=== PATIENT | male | born 1945 | race Caucasian/White ===

== ENCOUNTER → 2016-06-11 | Outpatient (CLI) | payer OTHER, MEDICARE ==
[~2016-06-11] MED LIST: ATEN25TA PO; CALC500C70 PO; CHOL100027 PO; CLC100X PO; CYAN100T6 PO; ENOX30IN SQ; LEVO75TA36 PO; OXYC-292 PO; OXYC1TAB3 PO; PYRI100T2 PO; SENN-61 PO; TYLOTC500 PO; [UNRECOGNIZED DRUG - CODE]
== END | disposition home or self-care (01) ==
LOC: C.RDSM 11:15
PROVIDERS: ATTEND Physical Medicine & Rehabilitation Sports Medicine
DX: Z96.652 Presence of left artificial knee joint (principal)

== ENCOUNTER 2020-11-28 09:32 | Observation (INO) ==
--- NOTE | 2020-11-27 12:06 | Anesthesiology Consultation ---
Date of Service November 27, 2020 Assessment & Plan (1) Encounter for pre-operative examination: Chart Review Chart Review: Acceptable Risk for Surgery and Patient NOT seen in Pre Admission Testing - Check [facility] AM DOS Per nursing assessment 11/27/2020, patient denies any recent travel. No known Covid infection in the past 90 days. Patient is vaccinated for Covid. No known Covid positive contacts or Covid related symptoms. Preop Covid test 11/24/20= negative. Pt requiring admission post operatively. Plan for recheck with COVID [facility] AM DOS due to possibility that patient may have a roommate. OR aware. [facility] order placed. Last seen by cardiology 06/20/2020 = seen for routine cardiac evaluation and review of medications. History of hypertensioncurrently being treated. Pulmonary hypertensionresolving. SOB and palpitations. Normal coronary arteries by cath March 2007. History of short episode of a flutter in 2011. Continue current medications. Continue checking BP on a regular [id number] Holter monitor to evaluate palpitations. Sleep studies ordered by PCP to further evaluate KIMBERLY. Follow-up in 12 months. History Surgery Operation Date: 11/28/20 12:00 Proposed Procedures p Right Achilles Debridement - Brandon Roy MD Height/Weight Height: 6 ft 1 in Weight: 105.687 kg Allergies Allergy/AdvReac Type Severity Reaction Status Date / Time methysergide Allergy Intermediate supervisor metal hanging, felt Verified 11/27/20 11:06 out of my body amlodipine Allergy Mild rash Verified 11/27/20 11:06 nabumetone Allergy Mild rash Verified 11/27/20 11:06 morphine AdvReac Intermediate LOW BP Verified 11/27/20 11:11 WHEN HAD MORPHINE SYSTEM ADMINISTRATION MANAGER Medications Home Medications Medication Instructions Recorded Confirmed Last Taken allopurinol 100 mg tablet 200 mg PO QAM 11/27/20 11/27/20 Unknown aspirin 325 mg tablet,delayed 325 mg PO QAM 11/27/20 11/27/20 Unknown release (Ecotrin) carvedilol 25 mg tablet 25 mg PO BID 11/27/20 11/27/20 Unknown cephalexin 500 mg capsule 500 mg PO TID 11/27/20 11/27/20 Unknown cholecalciferol (vitamin D3) 50 50 mcg PO QAM 11/27/20 11/27/20 Unknown mcg (2,000 unit) tablet (Vitamin D3) colchicine 0.6 mg capsule 0.6 mg PO BID 11/27/20 11/27/20 Unknown fluticasone fur. 100 mcg-umeclid 1 inh INHALATION DAILY PRN 11/27/20 11/27/20 Unknown 62.5 mcg-vilant 25 mcg inhalat.powder (Trelegy Ellipta) levothyroxine 75 mcg tablet 75 mcg PO QAM 11/27/20 11/27/20 Unknown Past Medical History Medical History (Updated 11/27/20 @ 15:34 by Yaz Wren PA-C) Acid reflux Diabetes mellitus, type 2 DIET CONTROLLED Gout History of kidney stones Hx of atrial flutter DX 2011 (NO CURRENT PROBLEM) Per cardio records- "History of short episode of a flutter in 2011" Hx of basal cell carcinoma REMOVED FROM EAR Hx of gastritis Hx of migraines Hypertension Hypothyroidism Lumbar spinal stenosis Neuropathy PVC (premature ventricular contraction) FOLLOWS WITH DR. SANON Sleep apnea BIPAP Small airways disease Past Family History Family History Grandmother (Maternal) Family history of diabetes mellitus Other No family history of adverse response to anesthesia Past Surgical History Surgical History H/O Achilles tendon repair RT History of cardiac cath 2006 (NO STENTS) History of colonoscopy History of esophagogastroduodenoscopy (EGD) History of lithotripsy History of tooth extraction History of total knee replacement LEFT Maxillary cyst REMOVED Social History Smoking Status: Never smoker Hx Alcohol Use: Yes Alcohol type: hard liquor alcohol intake frequency: 0-2 drinks per day substance use type: does not use Lab Results Anesthesia Preop Results Results Anesthesia Widget: WBC 7.12 K/uL (4.8-10.8) 11/24/20 Hgb 16.0 g/dL (14.0-18.0) 11/24/20 Hct 47.0 % (42-52) 11/24/20 Plt 218 K/uL (130-400) 11/24/20 Na 136 mmol/L (136-145) 11/24/20 K 4.2 mmol/L (3.5-5.1) 11/24/20 Cl 105 mmol/L (98-107) 11/24/20 CO2 30 mmol/L (21-32) 11/24/20 BUN 18 mg/dl (7-18) 11/24/20 Creat 0.90 mg/dl (0.6-1.4) 11/24/20 Glucose Level 132 mg/dl (70-99) H 11/24/20 Testing Electrocardiogram Date: 11/24/20 Findings: + SB @ (59bpm) RSR' and QR pattern in V1 suggests right ventricular conduction delay. Echocardiogram Date: 06/19/20 EF: 55% LV Function: normal Valvular Disease: + MR (Mild) Left atrium is mildly dilated. Mild TR. Stress Test Date: 04/22/19 Type: exercise (Echo) Resting EF: 55% Resting LV Function: normal Resting RWMA: + none Stress EKG negative for myocardial ischemia at 88%. Stress echo negative for new wall motion abnormality at 88% of MPHR. 10.1 METS achieved Stress echo normal improvement in the LVEF with stress. Frequent PVCs noted on stress. Other Testing Holter monitor 06/29/2020 to 06/30/2020 = sinus rhythm with episodes of sinus bradycardia and sinus tachycardia. Infrequent premature ventricular beats. Episodes of nonsustained ventricular tachycardia. No change. Consider an event monitor if continues to have symptoms.
[~2020-11-28 09:32] MED LIST changes: -ATEN25TA PO; -CALC500C70 PO; -CHOL100027 PO; -CLC100X PO; -CYAN100T6 PO; -ENOX30IN SQ; -LEVO75TA36 PO; +LR 15ML/HR IV SCH; -OXYC-292 PO; -OXYC1TAB3 PO; -PYRI100T2 PO; -SENN-61 PO; -TYLOTC500 PO; -[UNRECOGNIZED DRUG - CODE]
--- NOTE | 2020-11-28 12:22 | History & Physical Bridge Note ---
Date of Service November 28, 2020 History & Physical Bridge Note I have examined the patient, reviewed the History & Physical and in the interval since the performance of the History & Physical I have noted the following changes of clinical significance: no changes noted
[2020-11-28] MEDS ORDERED: NEOSTIGMINE METHYLSULFATE 1 MG/ML 10ML VIAL ONE (15:49)
[2020-11-28] MEDS ORDERED: ROCURONIUM BROMIDE 10 MG/ML 5 ML VIAL IV ONE (15:49)
[2020-11-28] MEDS ORDERED: fentaNYL citrate 100 MCG/2 ML VIAL ONE (15:49)
[2020-11-28] MEDS ORDERED: MIDAZOLAM HCL 1 MG/ML 2ML VIAL ONE (15:49)
[2020-11-28] MEDS ORDERED: GLYCOPYRROLATE 0.2 MG/ML VIAL ONE (15:49)
[2020-11-28] MEDS ORDERED: LIDOCAINE 2% 2 ML VIAL/AMP(20MG/ML) INFIL ONE (15:49)
[2020-11-28] MEDS ORDERED: BUPIVACAINE 0.5 % 5 MG/1 ML MPF 30ML VIAL ONE (15:57)
[2020-11-28] MEDS ORDERED: LIDOCAINE 1% LOCAL 20 ML VIAL ONE (16:11)
--- NOTE | 2020-11-28 17:04 | Operative Report ---
Post Operative Report Pre & Post Diagnosis Operation Date: 11/28/20 12:00 Pre-Op Diagnosis: Right Achilles Lesion Post-Op Diagnosis: Right Achilles Lesion I identified the patient and participated in the time-out.: Yes Procedure Operation Date: 11/28/20 12:00 Actual Procedures p Right Achilles Debridement(Right) - Brandon Roy MD Surgeon Brandon Roy MD Line Maintenance Supervisor Demond Gaytan no resident or fellow available. Estimated Blood Loss 0 Findings See Below Chalky material and nodular formation consistent with gout. No purulence. 2 old suture knots, from permanent FiberWire type sutures. Specimens The lesion was sent for specimen for gross pathology and micro. I also sent a swab culture for Gram stain aerobic and anaerobic BIC. I also asked for crystal analysis. Anesthesia Type General Regional Complications none Disposition Accompanied Patient To Recovery: No Disposition: Recovery Room Indications Raphael is status post a right Achilles repair. About a week ago he had a very painful lump pop up on the Achilles. This was treated as potential infection and also gout. Things have improved with less overall pain and swelling but the nodule persists. We talked about evaluating this with surgery and removing it he agreed to proceed. Surgery may be as simple as excising suture knots or could be more extensive if there was infection. This more extensive surgery could involve opening up the whole incision and removing sutures. Description of Procedure Informed consent obtained. Patient identified. He identified the operative site as the right Achilles. I marked with my initials. A preoperative surgical timeout was performed and a preop dose of IV antibiotics was given. He was taken to the operating room. He was anesthetized and then turned prone on the OR table. Chest rolls were utilized. The arms were Gerardo and comfortable abduction and external rotation with the elbows below the shoulders. A tourniquet was applied to the right thigh. Padding of the knees and ankles was performed as well as all bony prominences. The torso was secured to the table. The right leg was then prepped and draped in the usual sterile fashion. DVT prophylaxis with foot pumps. Postoperatively early mobility. Limb exsanguinated with the Esmarch. Tourniquet inflated 250 mmHg. Tourniquet let down to the conclusion of the procedure. The nodule was about a centimeter to 12 mm in diameter located centrally over the midportion of the prior Achilles incision. It was soft but not fluctuant. There is no drainage present. No induration. I incised for a distance of about 2 cm and then dissected subcutaneously around this lesion. Chalky white substance was encountered and nodular form. This went down into the substance of the tendon. It was dissected out from the surrounding tissues and resected. This was sent for a specimen as well as crystal analysis and appeared consistent with gout. There w as no purulence. Deep to this in the area where the gout penetrated into the tendon there were 2 old FiberWire suture knots which were retrieved and amputated. I then used a rongeur to debride the gout from the tendon area. This left a longitudinal defect about 3 mm wide and a centimeter long. 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 This was copiously irrigated with sterile saline. I then closed the tendon side to side with a 0 Vicryl. Not buried. I then closed the skin with 3-0 nylon interrupted horizontal mattress sutures. Xeroform 4 x 4's ABD Caden wrap applied. The patient's is going to provide the boot which and would be applied in recovery. He was awakened from anesthesia returned to the supine position extubated and taken to recovery without difficulty. Specimens were as mentioned above. Counts were correct. Blood loss was minimal and at the conclusion of the operation spoke to his informed my findings and gave postop instructions. We will check on the pathology tomorrow. We will continue IV antibiotics in case there is not any evidence of infection. We will follow-up on cultures tomorrow. DVT prophylaxis with early mobility. He may weight-bear as tolerated in his boot for comfort. I attest to the content of the Intraoperative Record and any orders documented therein. Any exceptions are noted below.
--- NOTE | 2020-11-28 17:10 | Operative Report ---
Post Operative Report Pre & Post Diagnosis Operation Date: 11/28/20 12:00 Pre-Op Diagnosis: Right Achilles Lesion Post-Op Diagnosis: Right Achilles Lesion I identified the patient and participated in the time-out.: Yes Procedure Operation Date: 11/28/20 12:00 Actual Procedures p Right Achilles Debridement(Right) - Brandon Roy MD Surgeon CAMILLE Roy MD Hand Coper Demond Gaytan no resident or fellow available. Estimated Blood Loss 0 Findings Consistent with Post-Op Diagnosis see operative report Specimens see operative report Drains none Complications none Disposition Accompanied Patient To Recovery: Yes Indications This 75-year-old male presented to the office with complaints of a nodule over his right Achilles that was painful. He tried conservative care measures without improvement. Patient elected to proceed with surgical intervention after being educated about potential risks and outcomes. Preoperative imaging was obtained. Description of Procedure Patient was taken to the operating room where he was given general anesthesia. He was prepped and draped in the usual sterile fashion. Please see Dr. Roy's operative report for specifics of the procedure. I was present for the entire case from initial patient positioning through final wound closure. Assistance was provided in tissue retraction, hemostasis, final wound closure, and final dressing. Patient was taken to the recovery room in satisfactory condition. I attest to the content of the Intraoperative Record and any orders documented therein. Any exceptions are noted below.
[2020-11-28] MEDS ORDERED: ONDANSETRON INJ 2 MG/ML 2 ML VIAL ONE (17:17)
[2020-11-28] MEDS ORDERED: DEXAMETHASONE SOD INJ 4 MG/ML VIAL ONE (17:17)
--- NOTE | 2020-11-28 17:27 | Anesthesiology Progress Note ---
Date of Service November 28, 2020 Anesthesia Post Procedure Vital Signs Vital Signs: Temp Pulse Pulse Resp BP BP Pulse Ox 11/28/20 17:15 67 12 159/86 H 100 11/28/20 17:06 37.0 C 74 12 152/84 H 99 11/28/20 10:18 36.9 C 62 20 142/84 H 97 Pain Intensity Right Ankle: Pain Intensity: 1 Transfer of Care Handoff Completed per policy Notes Mental Status: alert / awake / arousable Patient Amnestic to Procedure: Yes Nausea / Vomiting: adequately controlled Pain: adequately controlled Airway Patency, RR, SpO2: stable & adequate BP & HR: stable & adequate Hydration State: stable & adequate Anesthetic Complications: no major complications apparent
[2020-11-28] MEDS ORDERED: fentaNYL citrate 100 MCG/2 ML VIAL IV PRN (17:32)
[2020-11-28] MEDS ORDERED: ATROPINE SULFATE 0.1 MG/ML 10ML SYR IV PRN (17:32)
[2020-11-28] MEDS ORDERED: ePHEDrine sulfate 50 MG/ML AMP IV PRN (17:32)
[2020-11-28] MEDS ORDERED: ONDANSETRON INJ 2 MG/ML 2 ML VIAL IV PRN ×2 (17:32→18:19)
[2020-11-28] MEDS ORDERED: diphenhydrAMINE 50 MG/ML VIAL IV PRN (18:19)
[2020-11-28] MEDS ORDERED: bisacodyL 10 MG SUPP PR PRN (18:19)
[2020-11-28] MEDS ORDERED: ALUMINUM/MAGNESIUM SUSP 30 ML UDC PO PRN (18:19)
[2020-11-28] MEDS ORDERED: MAGNESIUM HYDROXIDE SUSP 30 ML UDC PO PRN (18:19)
[2020-11-28] MEDS ORDERED: TAMSULOSIN HCL 0.4 MG CAP PO PRN (18:19)
[2020-11-28] MEDS ORDERED: oxyCODONE HCL IR 5 MG TAB (IMMEDIATE RELEASE) PO PRN (18:19)
[2020-11-28] MEDS ORDERED: METOCLOPRAMIDE HCL INJ 5 MG/ML 2 ML VIAL IV PRN (18:19)
[2020-11-28] MEDS ORDERED: NALOXONE HCL 0.4 MG/1 ML VIAL/CARP IV PRN (18:19)
[2020-11-28] MEDS ORDERED: SODIUM CHLORIDE 0.9% 1000ML 1,000 ML IV SCH (18:19)
[2020-11-28] MEDS ORDERED: UMECLIDINIUM/VILANTEROL 62.5/25MCG 7 PUFFS/INHALER INH PRN (19:19)
[2020-11-28] MEDS ORDERED: FLUTICASONE FUROATE 100MCG 14 PUFFS/INHALER INH PRN (19:21)
[2020-11-28] MEDS: carvediloL 25 MG TAB PO SCH (20:35)
[2020-11-28] MEDS: DOCUSATE SODIUM 100 MG CAP PO SCH (20:36)
[2020-11-28] MEDS: COLCHICINE 0.6 MG TAB PO SCH (20:36)
[2020-11-28] MEDS: ACETAMINOPHEN 500 MG TAB PO SCH (20:59)
[2020-11-28] MEDS ORDERED: SENNA 8.6 MG TAB PO SCH (21:00)
[2020-11-28] MEDS: ceFAZolin 2000MG 2,000 MG/15 ML SYR IV SCH (22:57)
[2020-11-29] MEDS: ACETAMINOPHEN 500 MG TAB PO SCH (04:54)
[2020-11-29] MEDS ORDERED: LEVOTHYROXINE SODIUM 75 MCG TABLET PO SCH (06:30)
[2020-11-29 07:24] LABS: Appearance Urine Clear (Clear); Bilirubin Urine Negative (Negative); Blood Urine Negative (Negative); Color Urine Yellow; Glucose Urine UA Negative (Negative); Ketones Urine Negative (Negative); Leukocyte Esterase Urine Negative (Negative); Nitrite Urine Negative (Negative); Protein Urine Negative (Negative); Specific Gravity Urine 1.011 (1.000-1.030); Urobilinogen Urine Negative (Negative); pH Urine 6.5 (4.5-7.5)
[2020-11-29] MEDS ORDERED: ACETAMINOPHEN 325 MG TAB PO PRN (07:25)
[2020-11-29] MEDS ORDERED: ASCORBIC ACID 500 MG TAB PO SCH (08:00)
--- NOTE | 2020-11-29 08:23 | Orthopedic Progress Note ---
Date of Service November 29, 2020 Assessment & Plan (1) Achilles tendon mass: Plan: UA is ordered and is negative. Medications are adjusted. We will continue on the colchicine to treat gout. Add Celebrex. We will continue on Ancef until we get some preliminary results back. Elevate ice. Continue admission at this point pending laboratory results. We will check pathology and crystal analysis as well. He may weight-bear as tolerated. Check uric acid level. Admission and Anticipated Discharge Date Admission Date: November 28, 2020 Subjective We discussed findings of the surgical procedure which I think is primarily related to foreign body reaction and gout. Some discomfort. The boot bothers him. The boot can be worn as necessary. Reports some dysuria. A UA is ordered. Physical Exam Physical Exam: Distal neurovascular function intact. Claw toe deformity chronic. He can flex and extend the ankle with normal strength. Dorsalis pedis is 1+. Sensation intact there is no significant swelling. The dressing is dry. Results & Data ([facility] [place]) Vital Signs (Past 12 Hours) Vital Signs Temp Pulse Resp BP Pulse Ox 11/29/20 07:25 36.6 C 63 16 126/76 94 11/29/20 02:59 36.4 C L 64 14 126/70 96 11/28/20 22:45 36.7 C 70 18 125/68 92 11/28/20 21:20 36.7 C 72 20 127/72 95
[2020-11-29] MEDS: ceFAZolin 2000MG 2,000 MG/15 ML SYR IV SCH (08:33)
[2020-11-29] MEDS: DOCUSATE SODIUM 100 MG CAP PO SCH ×2 (08:35→08:43)
[2020-11-29] MEDS: COLCHICINE 0.6 MG TAB PO SCH ×2 (08:35→08:38)
[2020-11-29] MEDS: FERROUS GLUCONATE 324 MG TAB PO SCH ×2 (08:36→08:39)
[2020-11-29] MEDS: carvediloL 25 MG TAB PO SCH (08:36)
[2020-11-29] MEDS ORDERED: CELECOXIB 100 MG CAP PO SCH (09:00)
[2020-11-29] MEDS ORDERED: MULTIVITAMIN TAB PO SCH (09:00)
[2020-11-29] MEDS ORDERED: ASPIRIN 325 MG ECTAB PO SCH (09:00)
[2020-11-29] MEDS ORDERED: allopurinoL 100 MG TAB PO SCH (09:00)
[2020-11-29] MEDS ORDERED: ceFAZolin 2000MG 2,000 MG/15 ML SYR IV SCH (16:00)
--- NOTE | 2020-11-30 16:19 | Discharge Summary (DS) ---
DATE OF ADMISSION: 11/28/2020. DATE OF DISCHARGE: 11/29/2020. ADMITTING DIAGNOSIS: Right Achilles lesion. DISCHARGE DIAGNOSIS: Right Achilles lesion. PROCEDURE: Open debridement of right Achilles lesion. BRIEF HISTORY: The patient is a 75 years old and several years status post repair of his Achilles te ndon. He has developed an acute painful lesion. There is concern of infection or that this could be gout. He has been treated with anti-inflammatories, colchicine and antibiotics with some improvemen t. He wishes to have it removed. He was admitted to the hospital after a successful operation to remove the lesion on the right Achill es tendon, which was about a centimeter in size. Several stitches were removed and a toothpaste-like material was noted consistent with gout or calcium. Cultures were negative. There was no evidence of gout. The pathology was indicative of a dystrophic calcification with calcium hydroxyapatite. He was kept on a postoperative course of IV antibiotics. Given the preliminary results and absence of gross infection, he was discharged home. He will continue his Keflex until we get more culture data. Stop the colchicine. Take Celebrex. Weightbear as tolerated using fracture boot for comfort. He was educated about wound care and will follow up with me in my office in 2 weeks. He can do a dressi ng change and bathe. If there are any problems with pain, swelling, fevers or any other problems or questions, please return to the ER or call my office. Job ID: [id number]
== END 2020-11-29 15:43 | disposition home or self-care (01) ==
LOC: 3E 09:32 → ASU 09:32

== ENCOUNTER 2023-12-02 05:15 | Observation (INO) ==
--- NOTE | 2023-11-17 13:03 | PAT Medication Instructions ---
Medication Instructions Date of Service November 17, 2023 Home Medications allopurinol 100 mg tablet 200 mg PO QAM aspirin 325 mg tablet,delayed release (Ecotrin) 325 mg PO QAM cholecalciferol (vitamin D3) 50 mcg (2,000 unit) tablet (Vitamin D3) 50 mcg PO QAM levothyroxine 75 mcg tablet 88 mcg PO QAM acetaminophen 650 mg tablet,extended release 650 mg PO BID PRN fluticasone propionate 50 mcg/actuation nasal spray,suspension 2 spray intranasal QAM losartan 100 mg tablet 100 mg PO QAM rosuvastatin 5 mg tablet 5 mg PO 3XWK vitamins A,C,U-ihsn-mgggye 4,296 mcg-226 mg-90 mg capsule (PreserVision AREDS) 1 cap PO QAM acyclovir 5 % topical ointment 1 applic topical 6XD acyclovir 800 mg tablet 800 mg PO BID PRN alfuzosin 10 mg tablet,extended release 24 hr 10 mg PO PM bisoprolol fumarate 5 mg tablet 5 mg PO QAM naproxen sodium 220 mg tablet 220 mg PO Q8H nitroglycerin 0.4 mg sublingual tablet 0.4 mg sublingual DIRECTED PRN pantoprazole 20 mg tablet,delayed release 20 mg PO PM sildenafil (pulm.hypertension) 20 mg tablet 20 mg PO TID torsemide 10 mg tablet 10 mg PO QAM zinc 50 mg capsule 50 mg PO 3XWK Continue as directed rosuvastatin 5 mg tablet 5 mg PO 3XWK nitroglycerin 0.4 mg sublingual tablet 0.4 mg sublingual DIRECTED PRN(if needed) ASK your surgeon for instructions naproxen sodium 220 mg tablet 220 mg PO Q8H ASK your prescriber and surgeon aspirin 325 mg tablet,delayed release (Ecotrin) 325 mg PO QAM STOP taking 2 weeks before surgery (or as soon as possible if surgery is within 2 weeks) vitamins A,C,F-tcxs-rqwwjf 4,296 mcg-226 mg-90 mg capsule (PreserVision AREDS) 1 cap PO QAM STOP taking 24 hours before surgery acyclovir 5 % topical ointment 1 applic topical 6XD DO NOT take the morning of surgery cholecalciferol (vitamin D3) 50 mcg (2,000 unit) tablet (Vitamin D3) 50 mcg PO QAM losartan 100 mg tablet 100 mg PO QAM torsemide 10 mg tablet 10 mg PO QAM zinc 50 mg capsule 50 mg PO 3XWK Take morning of surgery With a small sip of water, OTHERWISE NOTHING TO EAT OR DRINK AFTER MIDNIGHT: allopurinol 100 mg tablet 200 mg PO QAM levothyroxine 75 mcg tablet 88 mcg PO QAM acetaminophen 650 mg tablet,extended release 650 mg PO BID PRN(if needed) acyclovir 800 mg tablet 800 mg PO BID PRN(if needed) fluticasone propionate 50 mcg/actuation nasal spray,suspension 2 spray intranasal QAM bisoprolol fumarate 5 mg tablet 5 mg PO QAM sildenafil (pulm.hypertension) 20 mg tablet 20 mg PO TID Take evening before surgery acetaminophen 650 mg tablet,extended release 650 mg PO BID PRN(if needed) acyclovir 800 mg tablet 800 mg PO BID PRN(if needed) alfuzosin 10 mg tablet,extended release 24 hr 10 mg PO PM pantoprazole 20 mg tablet,delayed release 20 mg PO PM sildenafil (pulm.hypertension) 20 mg tablet 20 mg PO TID Other Notes If you have any questions please call us at [phone] or [phone] or [phone] or [phone]
--- NOTE | 2023-11-20 14:24 | Anesthesiology Consultation ---
Date of Service November 20, 2023 Assessment & Plan (1) Encounter for pre-operative examination: - Patient did not have slip for sensitive D-dimer. PCP clearance 11/27/23: "...cleared for surgery...D dimer is not needed prior to surgery..." Dr. Neville also called me and confirmed that he spoke with his PCP and agrees D dimer is not needed prior to surgery. - ICD: Saint Rahul. - Case discussed in detail with Dr. Merida and he advised nothing is needed from pulmonary office prior to surgery and confirmed patient is to remain on sildenafil including morning of surgery. (Patient had inquired if this was to be stopped and was advised to take medication as advised on medication instruction list and I would call if that changed.) Patient confirmed remaining on sildenafil. - medical clearance 10/16/23: "...preoperative labs and testing...added a sensitive D-dimer to that regimen and he will take that slip along with him...implanted pacer defibrillator...sustained V-tach requiring shocking when he was initiating and the first stages of his electrophysiologic study...has undergone catheterization prior to that and has minimal evidence of coronary disease. At one point he had undergone a cardiac MRI with iron studies and hew as interpreted as potentially having mitral valve arrhythmic syndrome. However, that was reviewed by Justo and Naeem and he had a repeat...that suggest [sic] that he does not have that...not significant evidence of iron disposition...ferritin level below the 150 [place]...exercise induced pulmonary hypertension...on sildenafil...reasonably well from a cardiopulmonary standpoint...pending his labs, EKG, chest xray I will review those...yes patient is medically cleared for surgery..." - cardiology clearance 10/09/23: "...yes patient is medically cleared..." - cardiology office visit 06/03/23: "...cardiac evaluation and review of medications...nonprogressive functional class II shortness of breath and fatigue...right and left heart catheterization on 04/28/2023 which showed normal coronaries, mild pulmonary hypertension which worsened with isometric exercise...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 If re-evaluated and patient/surgeon requests outpatient pathway, patient is not ideal candidate for outpatient joint program from anesthesia standpoint. Chart Review Chart Review: Acceptable Risk for Surgery and Patient seen in Pre Admission Testing Teaching & Discussion Pre-Anesthesia Teaching/Discussion Notes: Instructed NPO after midnight before surgery, except medications with 15 cc of water. Medication instructions provided according to the PAT guidelines. History Surgery Operation Date: 12/02/23 07:00 Proposed Procedures p Right Total Knee Arthroplasty - Brandon Roy MD Height/Weight Height: 6 ft 2 in Weight: 108.5 kg Allergies Allergy/AdvReac Type Severity Reaction Status Date / Time adhesive tape Allergy Intermediate Blister Verified 11/17/23 11:25 methysergide Allergy Intermediate appliance tester, felt Verified 11/17/23 11:25 out of my body amlodipine Allergy Mild rash Verified 11/17/23 11:25 nabumetone Allergy Mild rash Verified 11/17/23 11:25 morphine AdvReac Intermediate LOW BP Verified 11/17/23 11:25 WHEN HAD MORPHINE SENIOR NUCLEAR MEDICINE TECHNOLOGIST Medications Home Medications Medication Instructions Recorded Confirmed Last Taken allopurinol 100 mg tablet 200 mg PO QAM 11/27/20 11/17/23 09/25/21 06:15 aspirin 325 mg tablet,delayed 325 mg PO QAM 11/27/20 11/17/23 09/24/21 release (Ecotrin) cholecalciferol (vitamin D3) 50 50 mcg PO QAM 11/27/20 11/17/23 09/24/21 mcg (2,000 unit) tablet (Vitamin D3) levothyroxine 75 mcg tablet 88 mcg PO QAM 11/27/20 11/17/23 09/24/21 acetaminophen 650 mg 650 mg PO BID PRN Pain 08/21/21 11/17/23 09/25/21 06:15 tablet,extended release fluticasone propionate 50 2 spray intranasal QAM 08/21/21 11/17/23 09/25/21 06:15 mcg/actuation nasal spray,suspension losartan 100 mg tablet 100 mg PO QAM 08/21/21 11/17/23 09/25/21 06:15 rosuvastatin 5 mg tablet 5 mg PO 3XWK 08/21/21 11/17/23 09/24/21 vitamins A,C,W-mipr-yrfbim 4,296 1 cap PO QAM 08/21/21 11/17/23 09/24/21 mcg-226 mg-90 mg capsule (PreserVision AREDS) acyclovir 5 % topical ointment 1 applic topical 6XD 08/28/21 11/17/23 08/27/21 acyclovir 800 mg tablet 800 mg PO BID PRN Other 08/28/21 11/17/23 08/27/21 alfuzosin 10 mg tablet,extended 10 mg PO PM 11/17/23 11/17/23 Unknown release 24 hr bisoprolol fumarate 5 mg tablet 5 mg PO QAM 11/17/23 11/17/23 Unknown naproxen sodium 220 mg tablet 220 mg PO Q8H 11/17/23 11/17/23 Unknown nitroglycerin 0.4 mg sublingual 0.4 mg sublingual DIRECTED PRN 11/17/23 11/17/23 Unknown tablet Chest Pain pantoprazole 20 mg tablet,delayed 20 mg PO PM 11/17/23 11/17/23 Unknown release sildenafil (pulm.hypertension) 20 20 mg PO TID 11/17/23 11/17/23 Unknown mg tablet torsemide 10 mg tablet 10 mg PO QAM 11/17/23 11/17/23 Unknown zinc 50 mg capsule 50 mg PO 3XWK 11/17/23 11/17/23 Unknown Past Medical History Medical History Asthma patient states he has exercise induced pulm HTN-follows with Dr. Leigh Autosomal dominant hereditary hemochromatosis patient states last phlebotomy was 05/2023 and levels improved BPH (benign prostatic hyperplasia) Diabetes mellitus, type 2 diet controlled Gout last flare 12 years ago History of COVID-19 (~08/2023) 2020-denies hospitalization-symptoms resolved History of kidney stones (~1998) Hx of atrial flutter (~2011) Per cardio records- "History of short episode of a flutter in 2011" pt denies recent issues Hx of basal cell carcinoma ear/ back s/p excision Hx of chronic arthritis bilateral hips and knees Hx of gastroesophageal reflux (GERD) controlled, stable per pt Hx of migraines Hx of ventricular fibrillation now has ICD Hypertension controlled, stable per pt; he notes hypotension yesterday sitting outside in heat-increased fluids and states BP since then has been above 110s/80s Hypothyroidism ICD (implantable cardioverter-defibrillator) in place Abbout > placed September 2022 for Vfib/tach > last checked August 2023 at [facility] Lumbar spinal stenosis Neuropathy feet; transient median and ulnar nerve paresthesias dependent on sleep positioning PVC (premature ventricular contraction) chronic palpitations-denies change or worsening Sleep apnea BIPAP-compliant Small airways disease minor changes on pulmonary functions; follows Dr. Leigh; no currents exacerbations Patient denies h/o stroke, seizures, heart attack, heart failure, blood clots/DVTs or blood transfusions. Exercise / Class Metabolic Activity III < 4 Walking/Shop/Light housework (ambulates with cane, chronic shortness of breath with usual activities-denies change or worsening-denies chest discomfort) Past Family History Family History Grandmother (Maternal) Family history of diabetes mellitus Other No family history of adverse response to anesthesia Past Surgical History Surgical History H/O Achilles tendon repair right History of cardiac cath 2006 (NO STENTS); follows Dr. Villagomez > another in Apr 2023 > no stents History of colonoscopy History of esophagogastroduodenoscopy (EGD) History of lithotripsy History of tooth extraction History of total hip arthroplasty left History of total knee replacement left Maxillary cyst s/p excision Past Anesthesia History No Hx of Anesthesia Complications and Other (aunt with acute angle closure glaucoma, mother and grandmother with glaucoma) History of PONV No Hx of PONV and No Hx of Motion Sickness Social History Smoking Status: Former smoker tobacco type: pipe and cigars Do You Dip or Chew Tobacco: No Hx Alcohol Use: Yes Alcohol type: hard liquor alcohol intake frequency: 0-2 drinks per day Hx Substance Use: No substance use type: does not use Review of Systems Patient denies chest pain, fever, chills, cough, or wheezing. Physical Exam Vital Signs Vitals BP 110/68 P 65 SP02 94% on RA RESP 17 Physical Patient resting comfortably in chair in no acute distress, alert and oriented, responding appropriately throughout visit Full cervical extension range of motion without pain TMD 3.5 finger breadths Mallampati Score 2 Dentition: several caps and two implants, denies chipped or loose teeth, or bridges Lungs: normal respiratory effort. Good air movement, clear throughout to auscultation, no adventitious breath sounds Cardiac: regular rate and rhythm, no murmurs noted Carotid arteries: negative bruit bilat Lab Results Anesthesia Preop Results Results Anesthesia Widget: WBC 5.19 K/ul (4.8-10.8) 11/20/23 Hgb 13.1 g/dl (14.0-18.0) L 11/20/23 Hct 39.3 % (42.0-52.0) L 11/20/23 Plt 177 K/uL (130-400) 11/20/23 Na 137 mmol/L (136-145) 11/20/23 K 3.8 mmol/L (3.5-5.1) 11/20/23 Cl 102 mmol/L (98-107) 11/20/23 CO2 27 mmol/L (21-32) 11/20/23 BUN 18 mg/dl (6-23) 11/20/23 Creat 1.20 mg/dl (0.6-1.4) 11/20/23 Glucose Level 99 mg/dl (70-99(Fasting)) 11/20/23 PT 10.6 Seconds (9.0-12.0) 11/20/23 PTT 25 Seconds (21-31) 11/20/23 INR 1.0 (0.9-1.1) 11/20/23 HA1c 5.8 % (4.5-5.6) H 11/20/23 Blood Type O Positive 11/20/23 Antibody Screen NEGATIVE 11/20/23 Testing Electrocardiogram Date: 04/28/23 Sinus rhythm, rate 68 bpm Incomplete RBBB Chest X-Ray Date: 11/20/23 No acute chest disease. Echocardiogram Date: 02/04/23 EF 56% Mild septal LVH Grade I diastolic dysfunction Estimated RVSP 43 mmHg Dilated atria Mild mitral valve regurgitation Mild tricuspid regurgitation Mild thickening and calcification of aortic valve without stenosis Stress Test Date: 06/17/22 Medium sized, moderate, fixed inferior wall defect suggestive of diaphragmatic attenuation artifact No evidence of ischemia or infarction Normal LVEF and wall motion Cardiac Catheterization Date: 04/28/23 Very mild nonobstructive epicardial CAD Exercise induced pulmonary hypertension Mean pulmonary artery pressure: 50 mmHg Left main: mild diffuse irregularity LAD: mild diffuse irregularity LCx: mild diffuse irregularity RCA: mild diffuse irregularity Other Testing Pacemaker report 10/30/23 [facility] Normal remote follow-up [facility] WNL Cardiac MRI 09/09/23 EF 49% No evidence for LV regional wall motion abnormalities Mildly dilated RV Mild prolapse of posterior mitral leaflet and mild mitral regurgitation Assessment of other valves is technically difficult due to excessive flow artifact Dilated LA Basal septal mid wall fibrosis which is a nonspecific finding but could indicate previous myocarditis. Chest CT 03/20/23 There are few reticulonodular airspace opacities seen at the right upper lobe abutting the major fissure. This can be seen with infection and/or aspiration.
[2023-12-02] MEDS: METOCLOPRAMIDE HCL 10 MG TABLET PO SCH (05:44)
[2023-12-02] MEDS: CeleBREX 200 MG CAP PO SCH (05:44)
[2023-12-02] MEDS: dexAMETHasone**PF** 10 MG/ML VIAL IV SCH (05:44)
[2023-12-02] MEDS: LR 60ML/HR IV SCH (05:44)
[2023-12-02] MEDS: traMADol HCL 50 MG TABLET PO SCH (05:44)
[2023-12-02] MEDS: ACETAMINOPHEN 500 MG TAB PO SCH ×2 (05:44→14:35)
[2023-12-02] MEDS: GABAPENTIN 300 MG CAP PO SCH (05:44)
[2023-12-02] MEDS: FAMOTIDINE 20 MG TAB PO SCH (05:44)
[2023-12-02] MEDS: LR 500ML BOLUS, THEN 15ML/HR IV SCH (05:55)
[2023-12-02] MEDS ORDERED: BUPIVACAINE 0.5 % 5 MG/1 ML PF 10ML VIAL ONE (06:14)
[2023-12-02] MEDS ORDERED: ROPIVACAINE 0.5% 5 MG/ML 30 ML VIAL ONE (06:14)
--- NOTE | 2023-12-02 06:42 | History & Physical Bridge Note ---
Date of Service December 02, 2023 History & Physical Bridge Note I have examined the patient, reviewed the History & Physical and in the interval since the performance of the History & Physical I have noted the following changes of clinical significance: no changes noted
[2023-12-02] MEDS: TRANEXAMIC ACID 1,000 MG **IV Pre-op IV SCH (06:54)
[2023-12-02] MEDS: ceFAZolin 2000MG 2,000 MG/15 ML SYR IV SCH ×2 (07:15→16:53)
[2023-12-02] MEDS: ORTHO JOINT ANESTHETIC ONE (07:47)
[2023-12-02] MEDS: VANCOMYCIN HCL 1000MG/20ML VIAL ONE (07:47)
--- OUTSIDE RECORDS SUMMARY | 2023-12-02 07:48 | External Medical Summary | Continuity of Care Document ---
Author Name Unknown Organization [facility] [id number] Address [address] [place] [id number] Care Team Providers Care Wire Inserter Name Role Phone Toño Dutta Primary Care Physician [phone] Encounter [facility] [id number] Date(s): 11/20/23 - 11/20/23 [facility] [address] [id number] [facility] [address] [place] [id number] Encounter Diagnosis DJD (degenerative joint disease) of knee(Discharge Diagnosis) - 11/20/23 Discharge Disposition: Home or Self Care Attending Physician: MD Manuela, Brandon Fowler Allergies, Adverse Reactions, Alerts Substance Criticality Severity Reaction Reaction Severity Status morphine Unable to assess criticality Moderate Low blood pressure Active Sansert Mild Cognitive Impairment, so Stated Active Polysporin rash Resolved Norvasc Rash Active Relafen Rash Active Medications acyclovir Start: 07/30/18 3:26:00 PM EDT, 500 mg/m2 =, PO, Daily, prn Start Date: 07/30/18 Status: Ordered allopurinol 100 mg oral tablet Start: 12/22/12 9:20:00 AM EDT, 2 tab, PO, Daily Start Date: 12/22/12 Status: Ordered amoxicillin Start: 10/02/23 3:53:00 PM EDT, 4 tabs 30 mins before denatl procedure Start Date: 10/02/23 Status: Ordered betamethasone dipropionate 0.05% topical cream Start: 11/27/16 2:03:00 PM EDT, 1 appl, topical, bid, Disp# 50 g, Refills: 2, apply to dermatitis on the scalp and extremities Start Date: 11/27/16 Status: Ordered Centrum Silver oral tablet Start: 07/29/12 3:14:00 PM EDT, 1 tab, PO, Daily Start Date: 07/29/12 Status: Ordered Ecotrin Start: 10/02/23 3:53:00 PM EDT Start Date: 10/02/23 Status: Ordered EPINEPHrine Start: 10/02/23 3:52:00 PM EDT Start Date: 10/02/23 Status: Ordered levothyroxine Start: 01/12/15 9:14:00 AM EDT, 75 mcg =, PO, Daily Start Date: 01/12/15 Status: Ordered losartan 100 mg oral tablet Start: 04/30/22 4:27:00 PM EST Start Date: 04/30/22 Status: Ordered lysine 500 mg oral tablet Start: 04/29/19 3:56:00 PM EST, 1 tab, PO, Daily Start Date: 04/29/19 Status: Ordered pantoprazole 40 mg oral delayed release tablet Start: 06/10/23 8:56:00 AM EST Start Date: 06/10/23 Status: Ordered PreserVision AREDS 2 Start: 04/30/22 4:25:00 PM EST Start Date: 04/30/22 Status: Ordered PreserVision AREDS 2 Start: 04/12/21 1:49:00 PM EST, 1 tab, PO, Daily Start Date: 04/12/21 Status: Ordered rosuvastatin 5 mg oral tablet Start: 06/10/23 8:57:00 AM EST Start Date: 06/10/23 Status: Ordered torsemide 10 mg oral tablet Start: 06/10/23 8:56:00 AM EST Start Date: 06/10/23 Status: Ordered Tylenol 500 mg oral tablet Start: 07/29/12 3:14:00 PM EDT, See Instructions, 1 tab daily Start Date: 07/29/12 Status: Ordered unknown medication Start: 11/24/20 7:56:00 AM EDT Start Date: 11/24/20 Status: Ordered Uroxatral Start: 06/10/23 8:56:00 AM EST Start Date: 06/10/23 Status: Ordered Vitamin B-12 Start: 04/12/21 1:48:00 PM EST, 1 tab, PO, Daily Start Date: 04/12/21 Status: Ordered Vitamin B6 Start: 04/12/21 1:48:00 PM EST, 1 tab, PO, Daily Start Date: 04/12/21 Status: Ordered Vitamin D3 2000 intl units oral tablet Start: 07/29/12 3:17:00 PM EDT, 1 tab, PO, Daily Start Date: 07/29/12 Status: Ordered Mental Status 11/20/23 Barriers to Learning one year None evide nt Mandatory Health Literacy Documentation Yes Health Literacy Communication Barriers N ever Primary Language Hebrew Problem List Condition Confirmation Course Effective Dates Status H ealth Status Informant Right ankle pain Confirmed Active Arthritis of left hip Confirmed Active Atrial Flutter Confirmed Active Calcific tendinitis Confirmed Active Presence of combination internal cardiac defibrillator (ICD) and pacemaker Confirmed Active Delayed wound healing Confirmed Active DJD (degenerative joint disease) of hip 1 Confirmed Active DJD (degenerative joint disease) of knee 2 Confirmed Active H/O: artificial joint Confirmed Active Dry scalp Confirmed Active Hemochromatosis Confirmed 09/21/21 Active Status post total left knee replacement Confirmed Active HTN (hypertension) Confirmed Active Left knee pain Confirmed Active Lumbago Confirmed Active Pre-op exam Confirmed Active Right foot pain Confirmed Active Right shoulder pain Confirmed Active Rotator cuff syndrome Confirmed Active Tobacco user Confirmed Active 1Left hip djd 2Left knee djd Diagnosis Diagnosis Type Effective Dates Health Status Cl inical Service Informant DJD (degenerative joint disease) of knee Discharge Diagnosis 11/20/23 Procedures Procedure Date Related Diagnosis Body Site Status Surgery 1 04/28/23 Completed Total replacement of left hip joint 11/13/21 Completed Left TKR 03/31/12 Completed Coronary angiogram 2006 Comple ashley Dental implants 2005 Completed Basal cell cancer 2 2003 Compl eted Basal cell cancer 3 2001 Compl eted Right knee scope 1996 Complete d Left knee scope 1989 Completed cyst removal 1961 Completed 1Heart cath 2back 3facial Vital Signs Most recent to oldest [Reference Range]: 1 Height 184.5 cm (11/20/23 3:55 PM) Patient Weight 108.2 kg (11/20/23 3:55 PM) Body Mass Index 31.79 kg/m2 (11/20/23 3:55 PM) Temperature [36.5-37.9 DegC] 36.4 DegC *LOW* (11/20/23 3:55 PM) Heart Rate 81 bpm (11/20/23 3:55 PM) Respiratory Rate 18 br/min (11/20/23 3:55 PM) Blood Pressure 130/70mmHg (11/20/23 3:55 PM) Cuff Pulse Pressure 60 mmHg (11/20/23 3:55 PM) Social History Social History Type Response Smoking Status Never smoked cigaret mario Sex Male Sex Representation Male (finding) Pre-OP H & P * KAYKAY Gaytan Cory D: PERFORM, MODIFY Event Display: Pre-OP H & P Authored Date: [id number] PRE-OPERATIVE HISTORY AND PHYSICAL Name: RAPHAEL TORRES Patient Number: [id number] : 1945 Date of Service: 11/20/2023 PRE-OP Diagnosis: Right knee DJD Planned Procedure: Right total knee arthroplasty Chief Complaint: Right knee pain History of Present Illness (including history relevant to procedure): This 78-year-old male presents today for his preoperative history and physical. He is scheduled to undergo a right knee total knee arthroplasty on 12/02/[address] Roy. He has a longstanding history of right knee pain. Ithas been present for years. Symptoms have become worse with time. He has increased pain with weightbearing and it is affecting his activities of daily living. He notes loss of motion of the knee. Occasional night pain. He has tried conservative care measures without lasting improvement. He is currently ambulating with a cane. He elects to proceed with surgical intervention in hopes of improving his pain and function. Preoperative imaging has been obtained. Review Of Systems: A total of 10 systems were reviewed and are significant only for below stated conditions. 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 No tobacco use, no EtOH use. 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 Right foot pain HTN (hypertension) Rotator cuff syndrome Hemochromatosis History of mild mitral regurgitation Asthma COPD Sleep apnea with use of BiPAP Migraine headaches Exertional pulmonary hypertension Diabetes Hypothyroidism Lumbar stenosis GERD Hiatal hernia Obesity BPH History of basal cell carcinoma Procedure History Procedure Procedure Date Comments Surgery Defibrillator/pacemaker placement Achilles surgery x 2 04/28/20232020 - Heart cath Total replacement of left hip joint 11/13/2021 Left TKR 03/31/2012 Coronary angiogram 2007 Dental implants 2006 Basal cell cancer 2004 - back Basal cell cancer 2002 - facial Right knee scope 1996 Left knee scope 1989 cyst removal 1961 Allergies and Sensitivities: morphine(Low blood pressure) Relafen(Rash) Sansert(Mild Cognitive Impairment, so Stated) Norvasc(Rash) Current Home Meds: (Last Updated 11/19 15:55) EPINEPHrine acetaminophen (Tylenol 500 mg oral tablet) 1 tab daily acyclovir 500 mg/m2 PO Daily prn alfuzosin (Uroxatral) allopurinol (allopurinol 100 mg oral tablet) 200 mg PO Daily amoxicillin 4 tabs 30 mins before denatl procedure aspirin (Ecotrin) betamethasone topical (betamethasone dipropionate 0.05% topical cream) 1 appl topical bid apply to dermatitis on the scalp and extremities cholecalciferol (Vitamin D3 2000 intl units oral tablet) 2,000 Int_Unit PO Daily cyanocobalamin (Vitamin B-12) 1 tab PO Daily levothyroxine 75 mcg PO Daily losartan (losartan 100 mg oral tablet) lysine (lysine 500 mg oral tablet) 500 mg PO Daily multivitamin with minerals (Centrum Silver oral tablet) 1 tab PO Daily multivitamin with minerals (PreserVision AREDS 2) 1 tab PO Daily multivitamin with minerals (PreserVision AREDS 2) pantoprazole (pantoprazole 40 mg oral delayed release tablet) pyridoxine (Vitamin B6) 1 tab PO Daily rosuvastatin (rosuvastatin 5 mg oral tablet) torsemide (torsemide 10 mg oral tablet) unknown medication CPAP machine - M Peoples 11/24 07:56 Vitals: Last Updated 11/20/23 15:55 Weights: Last Updated 11/20/23 15:55 Date Temp Pulse BP RR SpO2 FIO2 Date Wt(kg) Wt(lb) 11/19 15:55 36.4 81 130/70 18 95 11/19 15:55 108.2 238 11/19 15:55 108.2 238 24 Hr Tmax: 36.4 at 11/19 15:55 Initial Wt: 11/19 108.2 kg 238 lb Physical Exam: (relevant to the procedure, including heart and lung evaluation) General: Well-developed, well-nourished, elderly male, in no acute distress. Sitting in a chair. Alert and oriented. HEENT: Normocephalic, atraumatic. Eyes PERRLA, EOMI. Nares patent bilaterally without nasal drainage. Oropharynx with moist oral mucosa. Fair dentition. Neck: No JVD. Cardiac: RRR. No MGR. Peripheral pulses are 2+. Lungs: Clear to auscultation bilaterally. No crackles, rhonchi, or wheezing. Good air movement. Abdomen: Mildly obese. Bowel sounds present x 4. Soft nontender. No organomegaly. Extremities: Right knee evaluation reveals a lack of 5 to 8 degrees of terminal extension. Flexion to greater than 90 degrees. Strength is 5/5 with fairly good quad tone. Stable collateral ligaments.He has focal discomfort with palpation over the medial and patellofemoral joint lines. Mild crepitus is palpable with motion. Ambulating today with an antalgic gait using his cane. No palpable defectin the patellar tendon or quadriceps tendon. Neuro: Gross sensation is intact across the right leg by soft touch. Skin: Warm and dry with good turgor. No rashes. No significant intra-articular effusion in the right knee. Mild varicosities are present on the right lower extremity. Actinic keratosis is noted on his back. Studies of radiology results (relevant to the procedure): Radiographic imaging previously obtained shows end-stage DJD of the right knee. Periarticular osteophytes, subchondral sclerosis, and joint space narrowing are all present. ASSESSMENT: Right knee DJD Plan: Approximate 30 minutes was spent with the patient reviewing operative procedure, postoperative recovery, physical therapy requirements, and medication use. Postoperative prescriptions for oxycodone, Ultram, and Eliquis 2.5 mg will be sent to his pharmacy upon discharge from the hospital. Anticipate discharge to home with either home health services or outpatient PT. He would like to go to [facility] in [place]. He already has a raised toilet seat and cane. He is going to check on availability of a walker. He has already seen [facility] for his preoperative lab work, EKG, and chest x-ray. Leg length films have been obtained. He has already seen his PCP and on call pharmacy technician for medical clearance. He did not do well with morphine after previous surgery and was significantly hypotensive. He states he is fine with Dilaudid. He also had a rash with Relafen but takes Celebrex and Naprosyn without issue. PDMP was checked and there are no concerning findings. He is currently asymptomatic of any COVID-19 or influenza symptoms. Postop follow-up appointment has been made for staple removal on December [address] Roy. This dictation has been completed using giddy text voice recognition software. Grammatical errors, omissions, insertions, and misspellings may be present due to the limitations of the software. Electronic Signature on File Electronically Reviewed/Signed by: Demond Gaytan PA-C Author Signature Dt/Tm:11/20/2023 05:10 PM Division of Sports Medicine Electronically Reviewed/Signed by: Brandon Roy MD Cosigner Signature Dt/Tm: 11/21/2023 02:28 PM Division of Sports Medicine [facility] Ortho Outpt Note * MD Manuela, Brandon Fowler: PERFORM Event Display: Ortho Outpt Note Authored Date: [id number] Name:RAPHAEL TORRES Patient Number:[id number] :1945 Date of Service:11/21/2023 Raphael is here today for his preop. Right knee replacement coming upin about a week and a half. Surgical procedure risks and benefits reviewed and an informed consent was obtained. Healso mentions some pain he was having in the rightposterior buttock area. This could be compensatory innature. It might improve or worsen afterthe surgical procedure. His primary care physician has ordered some MRIsto be done but they will not be scheduled until after the surgical procedure.The discomfort is not located at thehamstring insertion. It issomewhat into the soft tissue of the buttock areaslightly lateral to the SI joint. He thinks this might be piriformis syndrome. A cortisone injection ultrasound-guided in the futureeither into the piriformis area orSI joint are future considerations. We have his cardiac goand medical clearance as well as his additional records. He had his PAT today. Aftercare discussed. Electronic Signature on File Electronically Reviewed/Signed by: Brandon Roy MD Author Signature Dt/Tm:11/21/2023 03:52 PM Division of Sports Medicine PSS Patient Care team information Care Team Personnel Name: MD Dutta James B Position: Referring Member Role: Primary Care Provider Address: [address] [place] [id number] Care Team Related Persons Name: JERONIMO TORRES
[2023-12-02] MEDS ORDERED: PHENYLEPHRINE HCL 10 MG/ML VIAL ONE (09:43)
[2023-12-02] MEDS ORDERED: PHENYLEPHRINE 100MCG/ML 10ML SYR IV ONE (09:43)
[2023-12-02] MEDS ORDERED: PROPOFOL IV EMULSION 10 MG/ML 100 ML VIAL IV ONE (09:43)
[2023-12-02] MEDS ORDERED: ONDANSETRON INJ 2 MG/ML 2 ML VIAL ONE (09:43)
[2023-12-02] MEDS ORDERED: LIDOCAINE 2% 2 ML VIAL/AMP(20MG/ML) INFIL ONE (09:43)
[2023-12-02] MEDS ORDERED: DEXAMETHASONE SOD INJ 4 MG/ML VIAL ONE (09:43)
[2023-12-02] MEDS: ROPIV 0.5% 246mg, Ketorolac 30mg, EPINEPHrine 0.5mg in NSS INFIL SCH (10:41)
--- NOTE | 2023-12-02 11:06 | Operative Report ---
Post Operative Report Pre & Post Diagnosis Operation Date: 12/02/23 07:00 Pre-Op Diagnosis: Osteoarthritis Knee Right Post-Op Diagnosis: Osteoarthritis Knee Right I identified the patient and participated in the time-out.: Yes Procedure Operation Date: 12/02/23 07:00 Actual Procedures p Right Total Knee Arthroplasty(Right) - Brandon Roy MD Surgeon Brandon Roy M.D. Transport Coordinator Elissa Raphael PA-C; no fellow or resident avialable Estimated Blood Loss 50 Findings Consistent with Post-Op Diagnosis Specimens bone and soft tissue Anesthesia Type MAC Spinal Regional Description of Procedure Patient was taken to the operating room, placed under Iv sedation, spinal anesthesia and peripheral nerve block preoperatively. Time out performed, prepped and draped in routine sterile fashion. He was given 2gm IV Ancef and 1 gm of IV TXA preoperatively for bleeding prophylaxis. I was present during the entire case, please see Dr. Roy's operative report for further detail regarding today's procedure. Patient was awakened and taken to the recovery room in stable condition. I attest to the content of the Intraoperative Record and any orders documented therein. Any exceptions are noted below.
[2023-12-02] MEDS ORDERED: ePHEDrine sulfate 50 MG/ML AMP IV PRN (11:10)
[2023-12-02] MEDS ORDERED: ATROPINE SULFATE 0.1 MG/ML 10ML SYR IV PRN (11:10)
[2023-12-02] MEDS ORDERED: HYDROmorphone INJ 2 MG/ML SYR/VIAL IV PRN (11:10)
[2023-12-02] MEDS ORDERED: ONDANSETRON INJ 2 MG/ML 2 ML VIAL IV PRN ×2 (11:10→12:29)
--- NOTE | 2023-12-02 11:10 | Operative Report ---
Post Operative Report Pre & Post Diagnosis Operation Date: 12/02/23 07:00 Pre-Op Diagnosis: Osteoarthritis Knee Right Post-Op Diagnosis: Osteoarthritis Knee Right I identified the patient and participated in the time-out.: Yes Procedure Operation Date: 12/02/23 07:00 Actual Procedures p Right Total Knee Arthroplasty(Right) - Brandon Roy MD Surgeon Brandon Roy MD Infrastructure Administrator Elissa Raphael PA-C; no fellow or resident avialable Estimated Blood Loss 50 Findings Consistent with Post-Op Diagnosis Specimens Resected bone and soft tissue right knee Anesthesia Type MAC Spinal Regional Complications none Disposition Accompanied Patient To Recovery: No Disposition: Recovery Room Indications Raphael is 78 years old and has severe arthritis of his right knee refractory to nonsurgical treatment. He wishes to have surgery done. He is had previous left hip and left knee replacements done as well. Description of Procedure Informed consent. Patient identified. He identified the procedure site as the right knee. I marked with my initials. A preoperative surgical timeout was performed. Preop dose of IV antibiotics given. TXA given. Positioned supine on the OR table with a tourniquet on the right thigh. A padded post under the right calf and a bump under the right hip. The leg was prepped and draped in the usual sterile fashion. DVT prophylaxis with mechanical devices intraoperatively. Postoperatively mobility mechanical devices and Eliquis beginning the morning after surgery. The exam under anesthesia showed range of motion 0/7/105 with a fixed moderate varus deformity and a moderate effusion. Ligaments were intact. Limb exsanguinated with the Esmarch. Tourniquet inflated to 275 mmHg. Midline incision was made about 20 cm in length followed by medial parapatellar arthrotomy. The retropatellar fat pad was resected. The synovial reflection in the lateral gutter was released. Soft tissue on the anterior aspect the distal femur was released. An extensile medial release off of the proximal medial tibia was performed. There is an ossicle near the patellar ligament insertion on the tibia which was left in situ. The patellar ligament appeared somewhat contracted. There was scarring throughout the knee likely relative the previous surgery. There were significant marginal osteophytes throughout the knee especially medially which were removed. The ACL was deficient. The patella could not be everted. Care was taken to protect the patellar ligament. Due to difficulty exposing the tibia I went ahead and elected to cut the patella first. The patella measured 29 mm in thickness. A 38 or 41 patella would work. I set the guide to preserve 18 mm of bone. The paddle was applied and aligned and the cut was made. The residual patellar thickness was 17 mm. A protective covering was placed over the patella. The 38 patella seem to fit best. There was a large lateral osteophyte which was partially resected. Exposure of the tibia was then performed by flexing the knee and inserting retractors. The medial meniscus was largely deficient and there was significant posteromedial wear. The PCL was resected along with notch osteophytes. The lateral meniscus was resected. There were grade 4 changes throughout the medial compartment. There were degenerative changes with bone spurring but intact cartilage in the lateral compartment. The patella showed significant lateral wear. [id number] changes. A aerial applicator pilot hole was drilled into the proximal tibia just in front of the lateral tibial spine and intramedullary alignment nayeli was inserted. The guide was set to resect 10 mm off of the lateral side which corresponded to a skim cut medially. 3 degree slope. This was confirmed with the extra medullary alignment nayeli with the knee fully extended. The nayeli intersected the second ray and bisected the ankle joint. This cut was made. Part of it had to be done freehand posteriorly and laterally due to the thickness of the tibia as well as the angle of the cut. The patellar tendon was just at the level of the resection which needed to be protected. Marginal osteophytes were removed. Posteromedial release performed. Tibia was sized to an 8. Computer Engineering Technologist hole was drilled into the distal femur followed by insertion of the distal femoral cutting guide. This was sent for 6 degrees valgus of the right knee and because of the flexion contracture and 11 mm thick cut. This was pinned in the place and the cut was made. The extension gap was asymmetric 10. The epicondylar axis was marked out. The distal femoral sizing guide was applied and sized to a 7. The pins were inserted which matched the epicondylar axis. The collateral ligaments were protected and the size 7 anterior down cutting block was applied pinned in place and the cuts were made. No notching of the femur. There was a rectangular flexion gap. Posterior osteophytes and osteophytes under the MCL were resected. The flexion gap was a 12 with a trace bit of looseness medially. The extension gap was a symmetric 12. Box cutting guide applied lateralized pinned in place and the box cut was made. Femoral trial applied and lug holes drilled. The tibia was applied aligned to the tibial tubercle and drilled and punched for the keel. The size 10 spacer was utilized first followed by the size 12. This resulted in full extension no laxity at full extension. At 20 degrees of flexion there is trace varus and valgus laxity. At 90 degrees of flexion the LCL was tight and there was trace MCL laxity. Attention was turned to the patella. The paddle was aligned with the patella and its [place] position and slight knee flexion. It was medialized and distal lysed. Lug holes were drilled. Patellar tracking was slightly off with no hands technique. I performed a minimal lateral release preserving the geniculate vessels. The lateral retinaculum was significantly thick and I did not release it in its entirety through the out the entire width. I did release enough that it allowed but the patella tracked properly. When the tourniquet was let down it tracked even better. At this time the tourniquet was let down. The trial components were removed and meticulous hemostasis was performed. Ortho joint mix was injected in the back the knee and the bony surfaces were irrigated. Meticulous hemostasis. After the tourniquet was down for 15 minutes the limb was exsanguinated with a spacer block in place. The bony surfaces were prepared. 2 bags of Simplex P cement were mixed with 2 total grams of vancomycin. Vacuum mixing. Smears were placed on the posterior condyles. While in a doughy state the femur tibia and patella were cemented into place and held in full extension while the cement hardened. The remainder of the Ortho joint mix was injected. Once the cemented hardened trialing was again performed and the 12 gave the best profile with full extension neutral alignment and the after mentioned minor ligament laxity. The back the knee was inspected for cement removed as encountered and further irrigation was performed and the final 12 mm thick size 7 matching the femur polyethylene was applied. Patellar tracking was fine with no hands technique. The composite patellar thickness after the reconstruction was 27 mm. This was 2 mm less than previous which I did on purpose due to the tightness of the extensor mechanism. The extensor mechanism was closed above the equator the patella with interrupted #2 FiberWire and below the equator with running #1 Vicryl. Due to the soft tissue releases cannot be completely repaired over the distal several centimeters. This was closed in a watertight fashion with 0 and then 2-0 Vicryl. The gravity assisted flexion with extensor mechanism closed was a range of motion of 0 to 110 degrees. [place] were applied followed by soft sterile dressing Xeroform 4 x 4's ABD soft wrap full-length Caden and knee immobilizer. Patient awakened from anesthesia without difficulty and taken to the recovery room in stable condition. The resected bone and soft tissue were sent for specimen and at the patient's request an iron stain was requested due to his history of hemochromatosis. Counts were correct. Blood loss is estimated to be 50 cc. The tourniquet was rubbery let down after the cemented hardened for total inflation time of 135 minutes with a 15-minute break. At the conclusion the operation spoke to patient's informed her my findings postop instructions were discussed. Medicine consult. Eliquis beginning the morning after surgery. Routine total knee rehab. Weightbearing as tolerated. Components inserted were the J&J attune 7 right femur and 8 RP tray 38 patella and the 7 x 12 RP insert. Tibial tray lateralized. I attest to the content of the Intraoperative Record and any orders documented therein. Any exceptions are noted below.
[2023-12-02] MEDS: HYDROmorphone INJ 1 MG/ML SYRINGE ONE (11:20)
[2023-12-02] MEDS ORDERED: PHARMACY GLYCEMIC MGMT CONSULT PRN (12:29)
[2023-12-02] MEDS ORDERED: MAGNESIUM HYDROXIDE SUSP 30 ML UDC PO PRN (12:29)
[2023-12-02] MEDS ORDERED: METOCLOPRAMIDE HCL INJ 5 MG/ML 2 ML VIAL IV PRN (12:29)
[2023-12-02] MEDS ORDERED: oxyCODONE HCL IR 5 MG TAB (IMMEDIATE RELEASE) PO PRN (12:29)
[2023-12-02] MEDS ORDERED: TAMSULOSIN HCL 0.4 MG CAP PO PRN (12:29)
[2023-12-02] MEDS ORDERED: NALOXONE HCL 0.4 MG/1 ML VIAL/CARP IV PRN (12:29)
[2023-12-02] MEDS ORDERED: NITROGLYCERIN SL 0.4 MG/TAB TAB SL PRN (12:29)
[2023-12-02] MEDS ORDERED: hydrALAZINE HCL 20 MG/ML VIAL IV PRN (12:29)
[2023-12-02] MEDS ORDERED: bisacodyL 10 MG SUPP PR PRN (12:29)
[2023-12-02] MEDS ORDERED: HYDROmorphone INJ 0.5 MG/0.5 ML SYR IV PRN (12:29)
[2023-12-02] MEDS ORDERED: HYDROmorphone INJ 1 MG/ML SYRINGE IV PRN (12:29)
[2023-12-02] MEDS: SODIUM CHLORIDE 0.9% 1,000 ML IV SCH (12:30)
--- NOTE | 2023-12-02 12:40 | XRay Report ---
XR knee RT 1 or 2V routine CLINICAL HISTORY: Surgical Post Op TECHNIQUE: 2 views of the right knee were obtained. Comparison: Comparison is made to knee radiographs 02/23/2014 FINDINGS: Patient is status post total knee arthroplasty with expected postsurgical changes including soft tiss ue swelling and subcutaneous emphysema. No periarticular lucency or hardware fracture is seen. IMPRESSION: Expected postoperative appearance status post placement of total knee arthroplasty. ACT 112: Negative or not required by law. Electronically signed by: Giovani Zamorano M.D. 12/02/2023 12:38 PM
--- NOTE | 2023-12-02 13:47 | Anesthesiology Progress Note ---
Date of Service December 02, 2023 Anesthesia Post Procedure Vital Signs Vital Signs: Temp Pulse Pulse Resp BP BP Pulse Ox 12/02/23 13:38 36.3 C L 77 16 117/70 92 12/02/23 12:10 36.4 C L 67 18 137/71 98 12/02/23 12:00 69 12 131/72 94 12/02/23 11:50 66 16 120/67 98 12/02/23 11:40 65 12 118/67 95 12/02/23 11:30 68 16 126/70 88 L 12/02/23 11:20 72 12 114/82 92 12/02/23 11:10 36.5 C 64 16 126/72 93 12/02/23 11:10 70 20 118/59 L 93 12/02/23 11:03 36.2 C L 67 18 106/61 98 12/02/23 05:38 36.7 C 73 20 118/60 97 O2 Del Method O2 Flow Rate 12/02/23 13:38 Room Air 12/02/23 12:10 Nasal Cannula 2 12/02/23 12:00 Room Air 12/02/23 11:50 Oxymask 2 12/02/23 11:40 Oxymask 2 12/02/23 11:30 Room Air 12/02/23 11:20 Room Air 12/02/23 11:10 Room Air 12/02/23 11:10 Room Air 12/02/23 11:03 Oxymask 6 12/02/23 05:38 Room Air Pain Intensity Right Shoulder: Pain Intensity: 3 Transfer of Care Handoff Completed per policy Notes Mental Status: alert / awake / arousable and participated in evaluation Nausea / Vomiting: adequately controlled Pain: adequately controlled Airway Patency, RR, SpO2: stable & adequate BP & HR: stable & adequate Hydration State: stable & adequate Neuraxial Anesthesia: was administered and sensory block is resolving Anesthetic Complications: no major complications apparent and Pt Satisfied with anesthetic care
[2023-12-02] MEDS: KETOROLAC TROMETHAMINE 15 MG/ML VIAL IV SCH (13:56)
[2023-12-02] MEDS: ACYCLOVIR 5% OINT 15 GM TUBE EXT SCH (13:57)
[2023-12-02] MEDS ORDERED: ACYCLOVIR 400 MG TAB PO PRN (14:51)
--- NOTE | 2023-12-02 14:51 | Pharmacy Report ---
Pharmacy Glycemic Short Note 2 - Date of Service December 02, 2023 - Glycemic Short BSG Results (Last 24 hours): 12/02/23 12/02/23 05:53 11:49 POC Glucose 125 H 158 H OUTPATIENT ANTIDIABETIC REGIMEN: * diet controlled / A1c - prediabetes ASSESSMENT: * Patient is s/p surgery, POD 0 - Pharmacy consulted for glycemic management. Patient A1c - prediabetic, no home medications listed. Postop BSG was 158 mg/dL. Patient did receive IV steroids preop, therefore may see some steroid induced hyperglycemia. * Patient insulin sensitive and only prediabetic therefore will be more conservative and utilize novolog postop. PLAN FOR INPATIENT GLYCEMIC CONTROL: * Hold outpatient oral diabetes medications * Basal insulin * Lantus - hold * Bolus insulin * NovoLog per scale ACHS or Q6hrs while NPO * Goal Range: Low 120 mg/dL - High 160 mg/dL * Correction Factor: 30 mg/dL/unit * Nutritional / Prandial insulin per carb ratio of 1 unit per 15 grams CHO consumed
[2023-12-02] MEDS ORDERED: GLUCOSE 40% GEL 15 GM TUBE PO PRN (15:00)
[2023-12-02] MEDS ORDERED: DEXTROSE 50% 50 ML SYRINGE IV PRN (15:00)
[2023-12-02] MEDS ORDERED: GLUCOSE 10 TAB/TUBE PO PRN (15:00)
[2023-12-02] MEDS ORDERED: GLUCAGON FOR INJ 1 MG VIAL IM PRN (15:00)
[2023-12-02] MEDS ORDERED: CARBOHYDRATES FOR HYPOGLYCEMIA PO PRN (15:00)
--- NOTE | 2023-12-02 15:34 | Orthopedic Progress Note ---
Date of Service December 02, 2023 Assessment & Plan Admission and Anticipated Discharge Date Admission Date: December 02, 2023 Orthopedic Progress Note Doing well postoperatively. No shortness of breath. Pain is well-controlled. X-rays are reviewed showing good positioning of the components no evidence of complication. He is able to wiggle his toes and has 5- out of 5 ankle and toe plantarflexion dorsiflexion and eversion strength with intact sensation dressing clean and dry and DP and PT pulses are both 1+. Surgical findings are reviewed. Postoperative plan is discussed. We talked about use of the brace pain medication blood thinners at [facility]. Stable postoperatively.
--- NOTE | 2023-12-02 16:00 | Hospitalist Progress Note ---
Date of Service December 02, 2023 Assessment & Plan (1) ICD (implantable cardioverter-defibrillator) in place: Plan: on chart review and discussion with patient, appears to have fairly esoteric cardiac conduction disease - but fortunately has been quite stable and has ICD. currently asymptomatic. monitor (2) Asthma: Plan: no sob. follow (3) Diabetes mellitus, type 2: Plan: A1c 5.8 - suspect will be easy to keep at goal - agree w insulin ordered by orthopedics especially since decadron given today. follow Plan DVT proph - per orthopedics Admission and Anticipated Discharge Date Admission Date: December 02, 2023 Subjective feels well overall. no significant pain. notes cardiac issues are fortunately all stable. no acute complaints Review of Systems Review of Systems: All systems reviewed & are unremarkable except as noted in HPI & below Physical Exam Physical Exam: gen aaox3 pleasant nad heent nc at mmm breathing unlabored no accessory muscles good effort skin no rashes no pallor or icterus neuro no focal deficits Results & Data Results & Data Vital Signs (Past 12 Hours) Vital Signs Temp Pulse Pulse Resp BP BP Pulse Ox 12/02/23 15:33 97.7 F 73 16 150/81 H 97 12/02/23 14:30 97.3 F L 70 16 127/72 96 12/02/23 13:38 97.3 F L 77 16 117/70 92 12/02/23 12:10 97.5 F L 67 18 137/71 98 12/02/23 12:00 69 12 131/72 94 12/02/23 11:50 66 16 120/67 98 12/02/23 11:40 65 12 118/67 95 12/02/23 11:30 68 16 126/70 88 L 12/02/23 11:20 72 12 114/82 92 12/02/23 11:10 97.7 F 64 16 126/72 93 12/02/23 11:10 70 20 118/59 L 93 12/02/23 11:03 97.2 F L 67 18 106/61 98 12/02/23 05:38 98.1 F 73 20 118/60 97 O2 Del Method O2 Flow Rate 12/02/23 15:33 Room Air 12/02/23 14:30 Room Air 12/02/23 13:38 Room Air 12/02/23 12:10 Nasal Cannula 2 12/02/23 12:00 Room Air 12/02/23 11:50 Oxymask 2 12/02/23 11:40 Oxymask 2 12/02/23 11:30 Room Air 12/02/23 11:20 Room Air 12/02/23 11:10 Room Air 12/02/23 11:10 Room Air 12/02/23 11:03 Oxymask 6 12/02/23 05:38 Room Air PG Care Time/CCT Total # of Minutes Spent Total Time Spent with Patient: Total time spent is greater than 50% in coordination of care (as documented) at patient's floor/unit and/or counseling patient: Coding Level of Care Code 43104 SUB INP/OBS CARE 2/35MIN Diagnoses ICD (implantable cardioverter-defibrillator) in place Z95.810 Asthma J45.909 Diabetes mellitus, type 2 E11.9
[2023-12-02] MEDS: SILDENAFIL CITRATE 20 MG TABLET PO SCH (16:20)
[2023-12-02] MEDS: TRANEXAMIC ACID / 0.7% NACL 1,000 MG/100 ML BAG IV SCH (16:53)
[2023-12-02] MEDS: INSULIN ASPART PER UNIT CHARGE SC SCH (17:04)
[2023-12-02] MEDS: traMADol HCL 50 MG TABLET PO PRN (18:14)
[2023-12-02] MEDS: TAMSULOSIN HCL 0.4 MG CAP PO SCH (21:38)
[2023-12-02] MEDS: DOCUSATE SODIUM 100 MG CAP PO SCH (21:38)
[2023-12-02] MEDS: SENNA 8.6 MG TAB PO SCH (21:38)
[2023-12-02] MEDS: PANTOprazole 40 MG TAB PO SCH (22:20)
[2023-12-03] MEDS: INSULIN ASPART PER UNIT CHARGE SC SCH (00:17)
[2023-12-03] MEDS: LEVOTHYROXINE SODIUM 88 MCG TABLET PO SCH (06:24)
[2023-12-03 07:36] LABS: Hematocrit (blood only) 31.2 % (42.0-52.0); Hemoglobin 10.5 g/dl (14.0-18.0); Mean Corpuscular Hemoglobin 32.5 pg (25.0-34.0); Mean Corpuscular Hgb Conc 33.7 g/dL (32.0-36.0); Mean Corpuscular Volume 96.6 fL (80.0-100.0); Mean Platelet Volume 10.4 fL (9.4-12.4); Platelet Count 186 K/uL (130-400); RDW Coefficient of Variation 14.4 % (11.5-14.5); RDW Standard Deviation 50.9 fL (36.4-46.3); Red Blood Count 3.23 M/uL (4.70-6.10); White Blood Count 12.95 K/ul (4.8-10.8)
[2023-12-03 08:01] VITALS: RESP 17; TEMP 98.1; O2SAT 97
[2023-12-03 08:01] LABS: Calcium 8.6 mg/dl (8.6-10.3); Creatinine Clr Calc Pharmacy 57.8 ml/min; Est GFR (African American) 55.9 ml/min; Est GFR (Non-African American) 48.2 ml/min; Potassium 4.5 mmol/L (3.5-5.1)
[2023-12-03] MEDS: dexAMETHasone 4 MG TAB PO SCH (08:37)
[2023-12-03] MEDS: CEROVITE ADV FORMULA TAB PO SCH (08:37)
[2023-12-03] MEDS: CHOLECALCIFEROL 25 MCG (1000 UNITS) TAB PO SCH (08:37)
[2023-12-03] MEDS: ASPIRIN 81 MG ECTAB PO SCH (08:39)
[2023-12-03] MEDS: BISOPROLOL FUMARATE 5 MG TAB PO SCH (08:39)
[2023-12-03] MEDS: CeleBREX 200 MG CAP PO SCH (08:39)
[2023-12-03] MEDS: allopurinoL 100 MG TAB PO SCH (08:39)
[2023-12-03] MEDS: FLUTICASONE PROPIONATE NA SPR 16 GM BTL NAE SCH (08:40)
[2023-12-03] MEDS: MULTIVITAMIN TAB PO SCH (08:40)
--- NOTE | 2023-12-03 08:45 | Orthopedic Progress Note ---
Date of Service December 03, 2023 Assessment & Plan (1) Knee joint replacement status: Plan: Stable status post right knee replacement. Plan for PT and OT today. We discussed follow-up. Things to watch out for. Medication regimen. Stressed the importance of rest elevation. Bathing and wound care discussed along with home nursing and PT when appropriate. Eliquis today. Hospitalist input appreciated. Blood pressure is stable without symptoms. Admission and Anticipated Discharge Date Admission Date: December 02, 2023 Subjective Pain well-controlled. Out of bed sitting in chair. Physical Exam Physical Exam: 5 out of 5 ankle and toe plantarflexion dorsiflexion inversion eversion strength. Foot is warm with minimal swelling and intact capillary refill less than 2 seconds DP and PT pulses are 1+ palpable. Dressing is clean and dry Results & Data Vital Signs (Past 12 Hours) Vital Signs Temp Pulse Pulse Resp BP BP Pulse Ox 12/03/23 07:57 36.7 C 64 17 110/62 97 12/03/23 03:00 36.6 C 65 18 103/58 L 95 12/02/23 23:00 36.4 C L 65 18 115/65 96 O2 Del Method 12/03/23 07:57 Room Air 12/03/23 03:00 Room Air 12/02/23 23:00 Room Air Laboratory Results Laboratory Results WBC 12.95 K/ul (4.8-10.8) H 12/03/23 06:45 RBC 3.23 M/uL (4.70-6.10) L 12/03/23 06:45 Hgb 10.5 g/dl (14.0-18.0) L 12/03/23 06:45 Hct 31.2 % (42.0-52.0) L 12/03/23 06:45 MCV 96.6 fL (80.0-100.0) 12/03/23 06:45 MCH 32.5 pg (25.0-34.0) 12/03/23 06:45 MCHC 33.7 g/dL (32.0-36.0) 12/03/23 06:45 RDW Std Deviation 50.9 fL (36.4-46.3) H 12/03/23 06:45 RDW Coeff of Aniceto 14.4 % (11.5-14.5) 12/03/23 06:45 Plt Count 186 K/uL (130-400) 12/03/23 06:45 MPV 10.4 fL (9.4-12.4) 12/03/23 06:45 Sodium 135 mmol/L (136-145) L 12/03/23 06:45 Potassium 4.5 mmol/L (3.5-5.1) 12/03/23 06:45 Chloride 102 mmol/L (98-107) 12/03/23 06:45 Carbon Dioxide 26 mmol/L (21-32) 12/03/23 06:45 Anion Gap 7 (3-11) 12/03/23 06:45 BUN 32 mg/dl (6-23) H 12/03/23 06:45 Creatinine 1.39 mg/dl (0.6-1.4) 12/03/23 06:45 Est Cr Clr Drug Dosing 57.8 ml/min 12/03/23 06:45 Est GFR ( Amer) 55.9 ml/min 12/03/23 06:45 Est GFR (Non-Af Amer) 48.2 ml/min 12/03/23 06:45 BUN/Creatinine Ratio 23.0 (10-20) H 12/03/23 06:45 Glucose 156 mg/dl (70-99(Fasting)) H 12/03/23 06:45 POC Glucose 176 mg/dl (70-99) H 12/03/23 07:34 Calcium 8.6 mg/dl (8.6-10.3) 12/03/23 06:45 Impressions Knee X-Ray 12/02/23 11:14 XR knee RT 1 or 2V routine CLINICAL HISTORY: Surgical Post Op TECHNIQUE: 2 views of the right knee were obtained. Comparison: Comparison is made to knee radiographs 02/23/2014 FINDINGS: Patient is status post total knee arthroplasty with expected postsurgical changes including soft tissue swelling and subcutaneous emphysema. No periarticular lucency or hardware fracture is seen. IMPRESSION: Expected postoperative appearance status post placement of total knee arthroplasty. ACT 112: Negative or not required by law. Electronically signed by: Giovani Zamorano M.D. 12/02/2023 12:38 PM
[2023-12-03] MEDS ORDERED: LOSARTAN POTASSIUM 50 MG TAB PO SCH (09:00)
[2023-12-03] MEDS ORDERED: TORSEMIDE 10 MG TAB PO SCH (09:00)
[2023-12-03] MEDS: APIXABAN 2.5 MG TAB PO SCH (10:15)
[2023-12-03] MEDS: POLYETHYLENE (MIRALAX) 17 GM PACK PO SCH (10:15)
[2023-12-03 11:54] VITALS: BP 116/72; PULSE 60
--- NOTE | 2023-12-03 14:55 | Hospitalist Progress Note ---
Date of Service December 03, 2023 Assessment & Plan (1) ICD (implantable cardioverter-defibrillator) in place: Plan: - Stable on ICD, no interventions planned (2) Asthma: Plan: - No SOB, continue following (3) Diabetes mellitus, type 2: Plan: - HgbA1c: 5.8% - Will keep at goal, patient given insulin 2/2 IV Decadron increasing blood glucose Plan DVT prophylaxis - per orthopedics Admission and Anticipated Discharge Date Admission Date: December 02, 2023 Supervising Physician Co-Signing Physician Notes I personally examined the patient and verified all hull points of history and exam, discussed case, and agree with decision making with Dr Locke No complaints. Feels good. Feels up to going home. Vitals noted, in general he is awake and alert pleasant no distress. HEENT normocephalic atraumatic mucous membranes moist. Breathing unlabored no accessory muscle use good effort. Skin without rashes pallor or icterus. Electrical cardiac disease status post ICDstable. Otherwise overall stable. Appears medically appropriate for discharge. Discussed holding diuretic again tomorrow, but being able to resume ARB, resuming both by the next day. Subjective Patient is a 78 y/o M seen today sitting comfortably while eating breakfast this morning. The patient is feeling well with no acute complaints or concerns. The patient denies chest pain/palpitations/tightness, shortness of breath/cough/wheeze, headache, fevers, chills, or edema. The patient has not yet had a bowel movement, but reports that he can feel gas moving. The patient is on a regular diet and reports no nausea, vomiting, or abdominal pain while eating. Physical Exam Physical Exam: General: patient resting comfortably, NAD, non-toxic in appearance, answers questions appropriately. Skin: warm, dry, intact HEENT: NC/AT, anicteric sclera, conjunctiva without injection, moist mucus membranes. Heart: +S1/S2, regular, no m/r/g Lungs: equal air entry bilaterally, no rales/rhonchi/wheezes Abd: +BS, soft, NT/ND Ext: warm, no clubbing/cyanosis or edema Neuro: nonfocal, speech intact, no facial droop, moving all extremities. Results & Data Results & Data Vital Signs (Past 12 Hours) Vital Signs Temp Pulse Pulse Resp BP BP Pulse Ox 12/03/23 11:52 36.7 C 60 17 116/72 97 12/03/23 11:48 36.7 C 64 65 17 110/62 103/58 L 97 12/03/23 07:57 36.7 C 64 17 110/62 97 12/03/23 03:00 36.6 C 65 18 103/58 L 95 O2 Del Method 12/03/23 11:52 Room Air 12/03/23 11:48 12/03/23 07:57 Room Air 12/03/23 03:00 Room Air Resident Activity Tracking Resident Involvement: Resident Care Provided Care Provided: Adult Hospital Medicine (2) Asthma Asthma complication type: uncomplicated Asthma persistence: unspecified Asthma severity: mild Qualified Code(s): J45.909 - Unspecified asthma, uncomplicated (3) Diabetes mellitus, type 2 Diabetes mellitus complication status: without complication Diabetes mellitus director long term care insulin use: unspecified director long term care insulin use status Qualified Code(s): E11.9 - Type 2 diabetes mellitus without complications
--- NOTE | 2023-12-03 17:38 | Billing Data ---
Date of Service December 03, 2023 Coding Level of Care Code 85591 SUB INP/OBS CARE
[2023-12-03] MEDS ORDERED: ROSUVASTATIN CALCIUM 5 MG TAB PO SCH (21:00)
[2023-12-03] MEDS ORDERED: ZINC SULFATE 220 MG CAPSULE PO SCH (21:00)
--- NOTE | 2023-12-04 06:54 | Discharge Summary ---
Date of Service December 04, 2023 Admission HPI Per Admitting Provider History of Present Illness (including history relevant to procedure): This 78-year-old male presents today for his preoperative history and physical. He is scheduled to undergo a right knee total knee arthroplasty on 12/02/[address] Roy. He has a longstanding history of right knee pain. It has been present for years. Symptoms have become worse with time. He has increased pain with weightbearing and it is affecting his activities of daily living. He notes loss of motion of the knee. Occasional night pain. He has tried conservative care measures without lasting improvement. He is currently ambulating with a cane. He elects to proceed with surgical intervention in hopes of improving his pain and function. Preoperative imaging has been obtained. Admission Exam Per Admitting Provider Physical Exam: (relevant to the procedure, including heart and lung evaluation) General: Well-developed, well-nourished, elderly male, in no acute distress. Sitting in a chair. Alert and oriented. HEENT: Normocephalic, atraumatic. Eyes PERRLA, EOMI. Nares patent bilaterally without nasal drainage. Oropharynx with moist oral mucosa. Fair dentition. Neck: No JVD. Cardiac: RRR. No MGR. Peripheral pulses are 2+. Lungs: Clear to auscultation bilaterally. No crackles, rhonchi, or wheezing. Good air movement. Abdomen: Mildly obese. Bowel sounds present x 4. Soft nontender. No organomegaly. Extremities: Right knee evaluation reveals a lack of 5 to 8 degrees of terminal extension. Flexion to greater than 90 degrees. Strength is 5/5 with fairly good quad tone. Stable collateral ligaments. He has focal discomfort with palpation over the medial and patellofemoral joint lines. Mild crepitus is palpable with motion. Ambulating today with an antalgic gait using his cane. No palpable defect in the patellar tendon or quadriceps tendon. Neuro: Gross sensation is intact across the right leg by soft touch. Skin: Warm and dry with good turgor. No rashes. No significant intra-articular effusion in the right knee. Mild varicosities are present on the right lower extremity. Actinic keratosis is noted on his back. Principal Diagnosis Right knee degenerative joint disease Discharge Exam Right lower extremity: 5 out of 5 ankle and toe plantarflexion dorsiflexion inversion eversion strength. Foot is warm with minimal swelling and intact capillary refill less than 2 seconds DP and PT pulses are 1+ palpable. 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 He is anxious to be discharged home today and will be doing in- home PT for the first 2 weeks post operatively. Stable status post right knee replacement. Plan for PT and OT today. We discussed follow-up. Things to watch out for. Medication regimen. Stressed the importance of rest elevation. Bathing and wound care discussed along with home nursing and PT when appropriate. Eliquis today. Hospitalist input appreciated. Blood pressure is stable without symptoms. Plan on discharge home later today. Follow up at [facility] as previously scheduled With Questions contact our clinic at . Total Time Total Time Spent Total Time Spent (In Minutes): 20 mins Discharge Plan Discharge Items Patient Disposition: Home - Home Health Services Reason For Visit: Osteoarthritis Knee Right Discharge Diagnosis: Osteoarthritis right knee Activity: Per Instructions section Lifting: None Bathing Comment: as instructed Sexual Activity: Wait until after follow-up appointment Exercise/Sports: None Driving/Machine Use: no driving Weightbearing: Right weightbearing Weightbearing Comment: with walker Non-emergency contact: Surgeon Call non-emergency contact if: you have any medication questions, your symptoms worsen, your pain is not controlled, your temperature is above 101, your wound has increased redness and your wound has increased drainage Follow-up/Referrals: Toño Dutta [Primary Care Provider] - 12/12/23 7:00 am Diet: Regular Addtl Attending Provider Instructions: New Medicine: * You will likely be taking one or more of these medications: 1. Eliquis-2.5 mg by mouth twice daily for 2 to 4 weeks after surgery. 2. Oxycodone - Take, as directed, when you need it, every four to six hours to control your pain. 3. Tramadol - take, as directed , when you need it, every four to six hours to control your pain. 4. Dulcolax & Senokot - Take to prevent constipation which can be caused by narcotics. These can be bought [id number] at the pharmacy 5. Extra strength Tylenol- take, as directed, when you need it, every 8 hours to control your pain. For the first 3 to 7 days you may take scheduled every 8 hours instead of as needed. 6. Colace - Take twice daily while on pain medication. This is over-the-co unter. 7. Aspirin 81mg daily while on Eliquis. Once completed with Eliquis, may resume Aspirin 325mg daily. * The most common side effects of pain medicine and iron are nausea and constipation. If nausea or constipation is too much of a problem or if you have any questions about your new medicines or doses, call [facility] at . We will try to help you manage these issues. "VERY IMPORTANT TO READ AND REVIEW" Blood Clots and Blood Thinning Medicine: -Take Eliquis 2.5 mg by mouth twice daily. This will be continued for 2 to 4 weeks after surgery. A prescription was sent to your pharmacy with a refill. If you have issues with cost, please let our office know. Physical Therapy: * Do your physical therapy at home. These are the exercises you learned while in the hospital (quad sets, leg raises, calf pumps, gluteal squeezes, knee bending, and heel props.) You should do these exercises 3-4 times per day. * You will either go to inpatient rehab ([facility]), home with Home Therapy and nursing or home with outpatient rehab. You should do rehab with the therapist 2-3 times per week. You should do therapy on your own daily. * You may bear full weight on your leg with crutches or walker unless otherwise advised. Home Exercise: * You were shown a series of exercises (heel props, heel slides, etc.) in the hospital. Do these exercises three to four times each day including the exercises you were shown in physical therapy. Walking: * You may be up for short periods of time. Standing and walking for 1-2 hours at a time is usually okay. You should not stand or walk for excessive periods of time as this may Cause increased pain and swelling. SELF CARE INSTRUCTIONS AFTER TOTAL KNEE REPLACEMENT A. You may need to continue a physical therapy program after discharge from the hospital. There are several options available to you. Your doctor will assist you in selecting the best one for you. 1. An out-patient facility 2 to 3 times a week for therapy or home therapy. 2. Continue working on all exercises taught to you in the hospital. Your goals should be to increase bending of your knee to 90 degrees and beyond and to fully straighten your knee. B. Your therapist will notify you when you are able to progress from a walker to a cane. C. Wear TEDS as much as possible.~ They may be removed at night for laundering. D. Do not place a pillow behind your knee when resting. A pillow at your ankle is okay. E. Ice your knee 15-20 minutes every 2-3 hours and elevate it above the level of your heart. F. You may shower on the fourth day after surgery using regular soap and water. Do not submerge until the wound is completely healed (approximately 2 weeks). Until the fourth day after surgery, cover the incision/bandage with a bag or plastic wrap. G. Anyone who is touching your surgical incision area should wash their hands and wear gloves. H. Keep your incision covered with gauze pads under the KIMO hose until it is dry. I. Use knee immobilizer on your left knee until good quad control - only when out of bed - may discontinue Friday if comfortable without it. VERY IMPORTANT TO READ AND REVIEW A. Leave dressings in place until changed by home health nursing or nurses at [facility]. They usually are kept in place for 2 to 3 days after surgery. B. There are a few signs you need to watch for after you are home. Call [facility] if you notice any of the followin. Increased severe knee pain. Some pain is expected especially when you exercise. 2. Increased swelling in your leg or knee; pain or swelling of the calf muscle in either lower leg. 3. Any fluid drainage from the incision. 4. Shortness of breath or chest pain. 5. Numbness and tingling in the surgical extremity C. Please call [facility] at if you have any concerns or questions about your operation or recovery. The doctor or his nurse will return your call promptly. D. Do not have any elective dental work or other elective procedures done for 6 weeks after your knee replacement. When you have any invasive procedure (dental cleaning, extraction, colonoscopy etc) performed, you will need to take antibiotics to prevent infection from developing in your artificial joint. Tell your other health care providers you have an artificial joint. My office will supply you with further information and the antibiotics. Call your doctor if: * Temperature above 101 degrees F. * Pain not relieved by pain medicine ordered. * Increased drainage or redness from incision. * Notify your doctor with any questions or concerns. Follow-up Visit: You will follow-up with Dr. Roy 10-14 days after surgery. The office number is . Avoid all tobacco products. If you need help to stop smoking, call [facility] FREE QUITLINE at . This is a free call. Pending Studies at Discharge: No Stand-Alone Forms: My [facility], Smoking Cessation Medications and DC Order Prescriptions: New oxycodone 5 mg tablet 5 mg PO Q4H MDD Max 6/day; Ongoing Tx PRN (Reason: pain) Qty: 28 0RF tramadol 50 mg tablet 50 mg PO Q6H MDD Ongoing Treatment PRN (Reason: pain) Qty: 28 0RF Continued acetaminophen 650 mg Tablet Extended Release 650 mg PO BID PRN (Reason: Pain) losartan 100 mg Tablet 100 mg PO QAM fluticasone propionate 50 mcg/actuation Thomas,Suspension 2 spray INTRANASAL QAM rosuvastatin 5 mg Tablet 5 mg PO 3XWK Patient Comments: M/W/F PreserVision AREDS [phone] Capsule 1 cap PO QAM acyclovir 800 mg Tablet 800 mg PO BID PRN (Reason: Other) acyclovir 5 % Ointment 1 applic TOPICAL 6XD allopurinol 100 mg Tablet 200 mg PO QAM levothyroxine 75 mcg Tablet 88 mcg PO QAM aspirin [Ecotrin] 325 mg Tablet,Delayed Release (Dr/Ec) 325 mg PO QAM cholecalciferol (vitamin D3) [Vitamin D3] 50 mcg (2,000 unit) Tablet 50 mcg PO QAM torsemide 10 mg Tablet 10 mg PO QAM pantoprazole 20 mg Tablet,Delayed Release (Dr/Ec) 20 mg PO PM bisoprolol fumarate 5 mg Tablet 5 mg PO QAM naproxen sodium 220 mg Tablet 220 mg PO Q8H nitroglycerin 0.4 mg Tablet, Sublingual 0.4 mg sublingual DIRECTED PRN (Reason: Chest Pain) alfuzosin 10 mg Tablet Extended Release 24 Hr 10 mg PO PM Rx Instructions: administer after the same meal each day sildenafil (pulm.hypertension) 20 mg Tablet 20 mg PO TID Rx Instructions: administer doses at least 4-6 hours apart zinc 50 mg Capsule 50 mg PO 3XWK Admission Data Admit Date/Time: 12/02/23 11:14 Attending Provider: Brandon Roy Admit Provider: Brandon Roy Primary Care Provider: Toño Dutta Other Providers: [facility],Home [facility]; Suraj Waite Other Interventions: Discharge Summary Assessment (RN) Last Done: 12/03/23 11:48
== END 2023-12-03 13:41 | disposition home health service (06) ==
LOC: 3E 05:15 → ASU 05:15
DX: Z88.8 Allergy status to other drugs, medicaments and biological substances; M17.11 Unilateral primary osteoarthritis, right knee; I48.92 Unspecified atrial flutter; G47.33 Obstructive sleep apnea (adult) (pediatric); Z79.899 Other long term (current) drug therapy; Z87.891 Personal history of nicotine dependence; M10.9 Gout, unspecified; I10 Essential (primary) hypertension; Z88.5 Allergy status to narcotic agent; M11.261 Other chondrocalcinosis, right knee; K21.9 Gastro-esophageal reflux disease without esophagitis; J45.909 Unspecified asthma, uncomplicated; Z95.810 Presence of automatic (implantable) cardiac defibrillator; E83.119 Hemochromatosis, unspecified; Z79.890 Hormone replacement therapy; E11.9 Type 2 diabetes mellitus without complications; Z79.82 Long term (current) use of aspirin; Z86.16 Personal history of COVID-19